=== PATIENT | male | born 1970 | race Caucasian/White ===

== ENCOUNTER 2021-06-19 17:20 | Emergency (ER) | payer OTHER, MEDICARE, SELFPAY ==
[2021-06-19 17:44] VITALS: BP 171/86; PULSE 101; RESP 20; TEMP 37.3; O2SAT 99
[2021-06-19 18:00] VITALS: BP 171/86
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
== END 2021-06-19 18:26 | disposition short-term general hospital (02) ==
PROVIDERS: Emergency Provider Emergency Medicine; PCP Internal Medicine
DX: R51.9 Headache, unspecified (principal); V89.2XXA Person injured in unspecified motor-vehicle accident, traffic, initial encounter
CPT/HCPCS: 99213; G0463

== ENCOUNTER 2021-06-19 18:33 | Emergency (ER) | payer OTHER, MEDICARE, SELFPAY ==
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
[2021-06-19 18:37] VITALS: BP 175/89; PULSE 98; RESP 20; TEMP 36.7; O2SAT 98
[2021-06-19 21:43] VITALS: BP 167/91; PULSE 92; RESP 16; O2SAT 97
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
[2021-06-19] MEDS: SODIUM CHLORIDE 0.9% IV 1,000 ML 999 ML IV CONT (22:38)
[2021-06-19] MEDS: KETOROLAC 30 MG/ML VIAL (*BKC) IV PUSH (22:39)
[2021-06-19] MEDS: diphenhydrAMINE HCl INJ 50 MG/ML VIAL 25 MG IV PUSH (22:39)
[2021-06-19] MEDS: METOCLOPRAMIDE HCL INJ 10 MG/2 ML VIAL IV PUSH (22:39)
[2021-06-20 00:34] VITALS: BP 150/90; PULSE 80; RESP 16; O2SAT 96
== END 2021-06-20 00:40 | disposition home or self-care (01) ==
PROVIDERS: Emergency Provider Emergency Medicine; PCP Internal Medicine
DX: G44.309 Post-traumatic headache, unspecified, not intractable (principal); F07.81 Postconcussional syndrome; F43.10 Post-traumatic stress disorder, unspecified; Z79.84 Long term (current) use of oral hypoglycemic drugs
CPT/HCPCS: 70450; 96361; 96374; 96375; 99284; J1200; J1885; J2765; J7030

== ENCOUNTER 2022-11-14 11:03 | Emergency (ER) | payer MEDICARE, OTHER, SELFPAY ==
[2022-11-14 11:49] VITALS: BP 164/92; PULSE 108; RESP 20; TEMP 36.6; O2SAT 98
--- NOTE | 2022-11-14 12:38 | ED.URI ---
HPI - URI/Sore Throat General Chief Complaint: Upper Respiratory Infection Stated Complaint: sorethroat Time Seen by Provider: 11/14/22 12:38 Source: patient and RN notes reviewed Mode of arrival: ambulatory Limitations: no limitations History of Present Illness HPI Narrative: 52-year-old male presented for complaint of left-sided throat pain for 4 days. He states pain is worse when he presses on the left side of the throat. Also feels phlegm is stuck back of his throat. Endorses mild nasal congestion and cough. He has been gargling warm salt water and Listerine. He smokes half pack per day and medical marijuana. History of diabetes and hypertension. He states he took his blood pressure medicine this morning. He denies shortness of breath, wheezing, fevers or chills. MD elicited complaint: cough Related Data Home Medications Medication Instructions Recorded Confirmed duloxetine 60 mg capsule,delayed 60 mg PO BID 06/19/21 11/14/22 release lisinopril 20 1 tablet PO BID 06/19/21 11/14/22 mg-hydrochlorothiazide 12.5 mg tablet metformin 1,000 mg tablet 1,000 mg PO DAILY 06/19/21 11/14/22 prazosin 2 mg capsule 2 mg PO DAILY 06/19/21 11/14/22 alprazolam 0.5 mg tablet 0.5 mg PO PRN PRN Anxiety 11/14/22 11/14/22 cyclobenzaprine 10 mg tablet 10 mg PO PRN PRN Back Pain 11/14/22 11/14/22 pregabalin 150 mg capsule 150 mg PO DAILY 11/14/22 11/14/22 zolpidem 10 mg tablet 10 mg PO DAILY 11/14/22 11/14/22 Allergies Allergy/AdvReac Type Severity Reaction Status Date / Time No Known Allergies Allergy Verified 11/14/22 12:01 Review of Systems Review of Systems: per HPI [facility] Past Medical History Medical History PTSD (post-traumatic stress disorder) Surgical History Surgical History Previous back surgery Social History Social History Social History: [place] Exam Narrative: GENERAL: Ill-appearing, nontoxic EYES: PERRLA, conjunctivae clear ENT: Mucous membranes moist. TMs pearly llanes with dull light reflex bilaterally; no tragal tenderness. Oropharynx erythematous without lesions or exudate, tonsils 2+ no drooling, no hoarseness, no trismus, uvula midline. No tripod positioning, muffled voice, soft palate or pharyngeal wall bulging NECK: Supple. No lymphadenopathy CHEST: Clear to auscultation, breath sounds equal. No wheezing, rhonchi, rales, or stridor. No respiratory distress, speaks in full sentences. HEART: Regular rate and rhythm. No murmur heard. SKIN: Warm, dry, no rash. NEURO: Alert and oriented x3. PSYCH: Normal mood and affect Course Course Emergency Course: Patient is aware of diagnosis, understands and agrees to treatment plan. Anticipatory guidance given. Patient agrees to follow-up as directed and is aware of reasons to seek care at the emergency department. Portions of this record may have been created with voice recognition software Level of Care: Express Care Visit Vital Signs Vital signs: Vital Signs Temperature 97.9 F 11/14/22 11:49 Pulse Rate 108 H 11/14/22 11:49 Respiratory Rate 11/14/22 11:49 Blood Pressure 164/92 H 11/14/22 11:49 Pulse Oximetry 98 11/14/22 11:49 Oxygen Delivery Room Air 11/14/22 11:49 Temperature 97.9 F 11/14/22 11:49 Pulse Rate 108 H 11/14/22 11:49 Respiratory Rate 20 11/14/22 11:49 Blood Pressure 164/92 H 11/14/22 11:49 Pulse Oximetry 98 11/14/22 11:49 Oxygen Delivery Room Air 11/14/22 11:49 reviewed MDM - URI/Sore Throat MDM Narrative Medical decision making narrative: Strep and COVID negative. Advised supportive measures and signs/symptoms to go to the ER. Pt is appropriate for outpt treatment and f/u. Differential Diagnosis Differential diagnosis: Likely upper respiratory infection, sinusitis and viral infection Lab
== END 2022-11-14 12:53 | disposition home or self-care (01) ==
PROVIDERS: Emergency Provider Nurse Practitioner Family; PCP Internal Medicine
DX: J06.9 Acute upper respiratory infection, unspecified (principal); Z20.822 Contact with and (suspected) exposure to COVID-19; F17.200 Nicotine dependence, unspecified, uncomplicated; F12.90 Cannabis use, unspecified, uncomplicated; E11.9 Type 2 diabetes mellitus without complications; I10 Essential (primary) hypertension; F43.10 Post-traumatic stress disorder, unspecified
CPT/HCPCS: 87081; 87426; 87880; 99213; C9803; G0463

== ENCOUNTER 2023-11-30 08:03 | Emergency (ER) | payer MEDICARE, OTHER, SELFPAY ==
[2023-11-30 08:31] VITALS: BP 196/100
[2023-11-30 08:32] VITALS: BP 200/109; PULSE 106; RESP 18; TEMP 36.6; O2SAT 98
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
[2023-11-30 09:06] VITALS: BP 180/90
== END 2023-11-30 09:10 | disposition home or self-care (01) ==
PROVIDERS: Nurse Practitioner; Emergency Provider Nurse Practitioner Family; PCP Internal Medicine
DX: J32.9 Chronic sinusitis, unspecified (principal); Z20.822 Contact with and (suspected) exposure to COVID-19; I10 Essential (primary) hypertension; E11.9 Type 2 diabetes mellitus without complications; Z79.84 Long term (current) use of oral hypoglycemic drugs; F32.A Depression, unspecified; F43.11 Post-traumatic stress disorder, acute
CPT/HCPCS: 87081; 87426; 87804; 87880; 99213; G0463